=== PATIENT | male | born 1990 | race Caucasian/White ===

== ENCOUNTER → 2017-04-08 | Outpatient (CLI) | payer OTHER ==
[~2017-04-08] MED LIST: BENA-4 PO; IBUP-1050 PO; OMEG10007 PO; ZNTT/150 PO
--- NOTE | 2017-04-08 08:27 | DIAGNOSTIC IMAGING REPORT ---
ABDOMINAL ULTRASOUND, RIGHT UPPER QUADRANT HISTORY: Abdominal pain. COMPARISON: Renal ultrasound August 02, 2016 FINDINGS: Liver is sonographically normal. There is no biliary ductal dilatation. There are multiple gallstones within the gallbladder, including a 1.3 cm stone within the gallbladder neck. Gallbladder wall thickness is at the upper limits of normal. The gallbladder is not distended. There is no pericholecystic fluid. The pancreatic body is normal. The pancreatic head and tail are partially obscured. There is no right hydronephrosis. IMPRESSION: 1. Cholelithiasis, including a 1.3 cm nonmobile gallstone within the gallbladder neck. Gallbladder wall thickness at the upper limits of normal. No gallbladder distention or pericholecystic fluid. The findings are not strongly suggestive of acute cholecystitis although a hepatobiliary scan could be obtained as indicated. 2. No biliary ductal dilatation. Electronically signed by: Basil Alex M.D. 04/08/2017 8:25 AM Dictated Date/Time: 04/08/2017 8:22 AM
== END | disposition home or self-care (01) ==
LOC: C.ULTR 07:47
PROVIDERS: ATTEND Registered Nurse
DX: R11.2 Nausea with vomiting, unspecified (principal); R10.11 Right upper quadrant pain

== ENCOUNTER → 2017-04-11 | Outpatient (CLI) | payer OTHER ==
--- NOTE | 2017-04-11 09:06 | DIAGNOSTIC IMAGING REPORT ---
HEPATOBILIARY HIDA IMAGING CLINICAL HISTORY: Right upper quadrant pain. Gallstones. COMPARISON STUDY: Ultrasound study dated 04/08/2017 FINDINGS: The patient was injected with 5.2 mCi of technetium 99m Choletec. Anterior imaging was performed. The gallbladder was first visualized on the 35 minute image. There is normal passage of activity into small bowel. IMPRESSION: No evidence of cystic duct obstruction. Electronically signed by: Jonnathan Asif M.D. 04/11/2017 9:04 AM Dictated Date/Time: 04/11/2017 9:03 AM
== END | disposition home or self-care (01) ==
LOC: C.NUCL 07:45
PROVIDERS: ATTEND Registered Nurse
DX: K80.20 Calculus of gallbladder without cholecystitis without obstruction (principal)

== ENCOUNTER → 2018-04-09 | Outpatient (CLI) | payer BC ==
[~2018-04-09] MED LIST changes: +RANI150T85 PO; -ZNTT/150 PO
[2018-04-09 10:08] LABS: ALBUMIN 4.6 gm/dl (3.4-5.0); BLOOD UREA NITROGEN 19 mg/dl (7-18); CALCIUM 9.3 mg/dl (8.5-10.1); CARBON DIOXIDE 33 mmol/L (21-32); CREATININE 1.33 mg/dl (0.60-1.40); GLUCOSE 85 mg/dl (70-99); POTASSIUM 3.5 mmol/L (3.5-5.1); SODIUM 134 mmol/L (136-145)
[2018-04-09 10:15] LABS: ALKALINE PHOSPHATASE 60 U/L (45-117); ALT/SGPT 29 U/L (12-78); AST/SGOT 17 U/L (15-37); CHOLESTEROL 234 mg/dl (0-200); LDL CHOLESTEROL CALCULATED 153 mg/dl
== END | disposition home or self-care (01) ==
LOC: C.LAB1850 08:20
PROVIDERS: ATTEND Internal Medicine
DX: I10 Essential (primary) hypertension (principal)